=== PATIENT | male | born 1985 | race Caucasian/White ===

== ENCOUNTER 2018-03-31 02:44 | Emergency (ER) | payer OTHER ==
--- NOTE | 2018-03-31 02:57 | ED Physician Documentation ---
PD HPI ABD PAIN - Stated complaint Stated Complaint: R BACK/SIDE PAIN - Chief complaint Chief Complaint: Abd Pain - History obtained from History obtained from: Patient - History of Present Illness Timing - onset: How many hours ago (2-3 hours [employer]) Timing - details: Abrupt onset Pain level max: 10 Pain level now: 2 Quality: Pain Location: RLQ Radiation: Right flank Improved by: Other (no ameliorating factors) Worsened by: Other (no exacerbating factors) Associated symptoms: Nausea, Vomiting. No: Fever, Diarrhea, Constipation Similar symptoms before: Has not had sx before Recently seen: Not recently seen Review of Systems Constitutional: reports: Reviewed and negative Cardiac: reports: Reviewed and negative Respiratory: reports: Reviewed and negative GI: reports: Abdominal Pain, Nausea, Vomiting : denies: Dysuria, Frequency PD PAST MEDICAL HISTORY - Past Medical History Past Medical History: No - Past Surgical History Past Surgical History: No - Allergies Allergies/Adverse Reactions: Allergies Allergy/AdvReac Type Severity Reaction Status Date / Time No Known Drug Allergies Allergy Verified 03/31/18 02:50 - Living Situation Living Arrangement: reports: At home - Social History Does the pt smoke?: No PD ED PE NORMAL - Vitals Vital signs reviewed: Yes - General General: Alert and oriented X 3, No acute distress, Well developed/nourished - Cardiac Cardiac: RRR, No murmur - Respiratory Respiratory: No respiratory distress, Clear bilaterally - Abdomen Abdomen: Soft, Non tender - Back Back: No CVA TTP Results - Vitals Vitals: Vital Signs - 24 hr 03/31/18 03/31/18 02:46 03:30 Temperature 36.5 C Heart Rate 63 64 Respiratory 14 16 Rate Blood Pressure 122/67 120/68 O2 Saturation 100 100 Oxygen O2 Source Room air - Labs Labs: Laboratory Tests 03/31/18 03/31/18 03/31/18 02:55 02:55 02:55 WBC 5.1 RBC 4.44 L Hgb 14.3 Hct 40.7 L MCV 91.7 MCH 32.1 H MCHC 35.1 RDW 12.6 Plt Count 224 MPV 8.7 Neut # (Auto) 2.9 Lymph # (Auto) 1.5 Wise # (Auto) 0.6 Eos # (Auto) 0.1 Baso # (Auto) 0.0 Absolute Nucleated RBC 0.00 Nucleated RBC % 0.0 Sodium 140 Potassium 3.6 Chloride 104 Carbon Dioxide 30 Anion Gap 6.0 BUN 22 H Creatinine 1.1 Estimated GFR (MDRD) 78 L Glucose 125 H Calcium 9.0 Total Bilirubin 0.6 AST 19 ALT 19 Alkaline Phosphatase 51 Total Protein 6.8 Albumin 4.4 Globulin 2.4 Albumin/Globulin Ratio 1.8 Lipase 36 Urine Color YELLOW Urine Clarity CLEAR Urine pH 6.0 Ur Specific [place] >=1.030 H Urine Protein NEGATIVE Urine Glucose (UA) NEGATIVE Urine Ketones NEGATIVE Urine Occult Blood LARGE H Urine Nitrite NEGATIVE Urine Bilirubin NEGATIVE Urine Urobilinogen 0.2 (NORMAL) Ur Leukocyte Esterase NEGATIVE Urine RBC TNTC H Urine WBC 0-3 Ur Squamous Epith Cells NONE SEEN Urine Bacteria Rare Urine Mucus Few Strands Ur Microscopic Review INDICATED Urine Culture Comments NOT INDICATED PD MEDICAL DECISION MAKING - ED course Complexity details: re-evaluated patient, considered differential, d/w patient ED course: Patient says his symptoms had nearly resolved by the time of this evaluation, only had mild residual aching right flank. He says he noted something was in the urine sample he provided and wondered if it was a kidney stone. I went to the lab and they still had the urine sample in the container, and there was indeed a 3mm calculus in the cup. I went back to ED and discussed this with him , and he says his symptoms already were completely resolved. There is hematuria on the UA. This is all consistent with renal colic that has now resolved with the passage of the calculus, and thus no further testing nor treatment indicated. Patient is comfortable with this. The urine was strained and he was given the calculus and instructed to contact PMD to inquire as to whether stone analysis is recommended. - Sepsis Event Vital Signs: Vital Signs - 24 hr 03/31/18 03/31/18 02:46 03:30 Temperature 36.5 C Heart Rate 63 64 Respiratory 14 16 Rate Blood Pressure 122/67 120/68 O2 Saturation 100 100 Oxygen O2 Source Room air Departure - Departure Disposition: 01 Home, Self Care Clinical Impression: Renal colic Condition: Good Instructions: ED Stone Renal Passed Follow-Up: Jourdan Mc MD [Primary Care Provider] - Comments: Contact your primary care provider's office in the morning and ask if they recommend stone analysis. If they do, your doctor can order this test from their office, and they can direct you where to submit the kidney stone for analysis. Discharge Date/Time: 03/31/18 03:30
[2018-03-31 03:03] LABS: BILIRUBIN,URINE NEGATIVE (NEGATIVE); GLUCOSE, URINE (UA) NEGATIVE (NEGATIVE); KETONES,URINE (UA) NEGATIVE (NEGATIVE); LEUKOCYTE ESTERASE, URINE NEGATIVE (NEGATIVE); NITRITE,URINE NEGATIVE (NEGATIVE); OCCULT BLOOD,URINE LARGE (NEGATIVE); PROTEIN,URINE NEGATIVE (NEGATIVE); UROBILINOGEN,URINE 0.2 (NORMAL) E.U./dL (NORMAL)
[2018-03-31 03:09] LABS: BACTERIA,URINE Rare /HPF (None Seen); CLARITY,URINE CLEAR (CLEAR); MUCUS,URINE Few Strands; RBC,URINE TNTC /HPF (0-5); SQUAMOUS EPITHELIAL CELL,UR NONE SEEN (<= Few)
[2018-03-31 03:18] LABS: BASOPHILS % (AUTO) 0.5 %; EOSINOPHILS # (AUTO) 0.1 10^3/uL (0.0-0.7); EOSINOPHILS % (AUTO) 1.9 %; HGB - HEMOGLOBIN 14.3 g/dL (14.0-18.0); LYMPHOCYTES # (AUTO) 1.5 10^3/uL (1.5-3.5); LYMPHOCYTES % (AUTO) 28.6 %; MEAN CORPUSCULAR HEMOGLOBIN 32.1 pg (27.0-31.0); MEAN CORPUSCULAR HGB CONC 35.1 g/dL (32.0-36.0); MEAN CORPUSCULAR VOLUME 91.7 fL (80.0-94.0); MEAN PLATELET VOLUME 8.7 fL (7.4-11.4); MONOCYTES # (AUTO) 0.6 10^3/uL (0.0-1.0); MONOCYTES % (AUTO) 11.1 %; NEUTROPHILS # (AUTO) 2.9 10^3/uL (1.5-6.6); NEUTROPHILS % (AUTO) 57.9 %; PLT - PLATELET COUNT 224 10^3/uL (130-450); RED BLOOD COUNT 4.44 10^6/uL (4.70-6.10); RED CELL DISTRIBUTION WIDTH 12.6 % (12.0-15.0); WHITE BLOOD COUNT 5.1 x10^3/uL (4.8-10.8)
[2018-03-31 03:26] LABS: ALBUMIN 4.4 g/dL (3.2-5.5); ALBUMIN/GLOBULIN RATIO 1.8 (1.0-2.2); BILIRUBIN,TOTAL 0.6 mg/dL (0.2-1.0); CREATININE 1.1 mg/dL (0.6-1.2); TOTAL PROTEIN 6.8 g/dL (6.7-8.2)
[2018-03-31 03:31] VITALS: BP 120/68
== END 2018-03-31 03:30 | disposition home or self-care (01) ==
LOC: ED 02:44
DX: N23 Unspecified renal colic (principal)
CPT/HCPCS: 36415; 80053; 81001; 81003; 83690; 85025; 87086; 99283

== ENCOUNTER 2021-07-22 09:08 | Emergency (ER) | payer OTHER, BC ==
[2021-07-22 09:17] VITALS: BP 115/73
--- NOTE | 2021-07-22 09:37 | XRAY Report ---
PROCEDURE: Hand 3 View LT INDICATIONS: Trauma TECHNIQUE: 3 views of the hand(s) acquired. COMPARISON: None FINDINGS: Bones: No acute fractures or dislocations. Slight deformity of the fifth metacarpal possibly related to remote fracture which has healed in slight deformity. Sensory ossicle versus old ulnar styloid pr ocess fracture noted.. No suspicious bony lesions. Soft tissues: No suspicious soft tissue calcifications. IMPRESSION: No acute fracture. No acute osseous lesion. If there are persistent symptoms or continued clinical co ncern for pathology, then repeat plain film radiographs (7-10 days) or advanced imaging (CT, MR, bone scan) should be considered for further evaluation. Reviewed by: Kori Coppola MD, PhD on 07/22/2021 9:36 AM PST Approved by: Kori Coppola MD, PhD on 07/22/2021 9:36 AM PST Station ID: [id number]
--- NOTE | 2021-07-22 09:50 | ED Physician Documentation ---
PD HPI UPPER EXT INJURY - Stated complaint Stated Complaint: L HAND INJURY - Chief complaint Chief Complaint: Trauma Ext - History obtained from History obtained from: Patient - Additonal information Additional information: Patient comes emergency department chief complaint of pain and stiffness in his left fingers 2 through 4 since a work incident yesterday. 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 He states that he suddenly felt what seemed to be a pop or a twinge in his fingers and he lost his hold on the manhole cover and it fell down. Patient states his fingers did not get crushed but he felt as though he may have torn something. 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 The patient denies any laxity or flaccid weakness of the fingers as far as he can tell. He states that when he tries to make a fist, it is difficult for him to do so because of the stiffness since pain. No other injuries or complaints. No history of any connective tissue disorder or prior injury to this hand. Review of Systems Ten Systems: 10 systems reviewed and negative Constitutional: reports: Reviewed and negative Eyes: reports: Reviewed and negative Ears: reports: Reviewed and negative Nose: reports: Reviewed and negative Throat: reports: Reviewed and negative Cardiac: reports: Reviewed and negative Respiratory: reports: Reviewed and negative GI: reports: Reviewed and negative : reports: Reviewed and negative Skin: reports: Reviewed and negative Musculoskeletal: reports: Extremity pain, Joint pain Neurologic: reports: Reviewed and negative Psychiatric: reports: Reviewed and negative Endocrine: reports: Reviewed and negative Immunocompromised: reports: Reviewed and negative PD PAST MEDICAL HISTORY - Past Surgical History Past Surgical History: No Ortho: Other - Present Medications Home Medications: Ambulatory Orders Medication Instructions Recorded Confirmed No Known Home Medications 07/22/21 07/22/21 - Allergies Allergies/Adverse Reactions: Allergies Allergy/AdvReac Type Severity Reaction Status Date / Time No Known Drug Allergies Allergy Verified 07/22/21 09:14 - Social History Does the pt smoke?: No Smoking Status: Never smoker Does the pt drink ETOH?: Yes Does the pt have substance abuse?: No - Immunizations Immunizations are current?: Yes PD ED PE NORMAL - Vitals Vital signs reviewed: Yes - General General: Alert and oriented X 3, No acute distress, Well developed/nourished - HEENT HEENT: Atraumatic, PERRL, EOMI, Moist mucous membranes - Neck Neck: Supple, no meningeal sign - Cardiac Cardiac: Strong equal pulses - Respiratory Respiratory: No respiratory distress - Derm Derm: Normal color, Warm and dry, No rash - Extremities Extremities: No deformity, Other (Moderately limited range of motion of left index, middle, and ring fingers with regard to both extension and flexion. Minimal edema noted. No deformity. No laxity of MCP or IP joints. Good strength at every joint with both flexion and extension for the 3 affected fingers. Equal to right hand) - Neuro Neuro: Alert and oriented X 3, raveler 2-12 intact, No motor deficit, No sensory deficit, Normal speech - Psych Psych: Normal mood, Normal affect Results - Vitals Vitals: Vital Signs - 24 hr 07/22/21 09:15 Temperature 36.7 C Heart Rate 100 Respiratory 17 Rate Blood Pressure 115/73 O2 Saturation 100 Oxygen O2 Source Room air - Rads (name of study) Left hand x-ray Radiology: Final report received, EMP read indepedently, See rad report (Negative) PD MEDICAL DECISION MAKING - ED course Complexity details: reviewed results, re-evaluated patient, considered differential, d/w patient ED course: I discussed with the patient that his x-ray series is negative and that his exam mainly shows decreased range of motion, which he attributes to stiffness and pain. I do not find any evidence at this point of joint instability, and patient has good strength against resistance for both flexion and extension at all joints of the affected fingers. As such, I feel that tendon rupture is also unlikely. I discussed with the patient that most likely, he has strained and sprained the connective tissue structures in his fingers. This will cause some pain and stiffness but is expected to be self-limited. However, I will give him contact information for hand specialty if he continues to have issues. We have discussed symptomatic management at home the usual indications for return. Departure - Departure Disposition: 01 Home, Self Care Clinical Impression: Sprain of hand, left Qualifiers: Encounter type: initial encounter Qualified Code(s): S63.92XA - Sprain of unspecified part of left wrist and hand, initial encounter Finger sprain Qualifiers: Encounter type: initial encounter Finger: unspecified finger Qualified Code(s): S63.619A - Unspecified sprain of unspecified finger, initial encounter Condition: Stable Instructions: ED Sprain Hand, ED Sprain Finger Follow-Up: Edgard Duran MD [Physician No Access] -
== END 2021-07-22 10:09 | disposition home or self-care (01) ==
LOC: ED 09:08
DX: S63.611A Unspecified sprain of left index finger, initial encounter (principal); S63.613A Unspecified sprain of left middle finger, initial encounter; S63.615A Unspecified sprain of left ring finger, initial encounter; S63.92XA Sprain of unspecified part of left wrist and hand, initial encounter; X50.0XXA Overexertion from strenuous movement or load, initial encounter; Y93.89 Activity, other specified; Y99.0 Civilian activity done for income or pay
CPT/HCPCS: 99282; 99283